=== PATIENT | male | born 1975 | race Caucasian/White ===

== ENCOUNTER 2021-02-07 10:28 | Outpatient (RCR) | payer OTHER | END 2021-04-23 | disposition home or self-care (01) | LOC: WSOH | DX: M25.561 Pain in right knee (principal); F41.8 Other specified anxiety disorders; F90.9 Attention-deficit hyperactivity disorder, unspecified type; Z98.52 Vasectomy status; Z98.890 Other specified postprocedural states; Y99.0 Civilian activity done for income or pay ==